=== PATIENT | female | born 1985 | race Caucasian/White ===

== ENCOUNTER → 2016-07-28 | Outpatient (CLI) | payer OTHER ==
[~2016-07-28] MED LIST: PRENTAB26 PO
[2016-07-28 18:39] LABS: URINE APPEARANCE CLEAR (CLEAR); URINE BILIRUBIN NEG (NEG); URINE COLOR YELLOW; URINE NITRITE NEG (NEG); URINE SPECIFIC GRAVITY 1.015 (1.000-1.030); UROBILINOGEN NEG (NEG)
[2016-07-28 18:40] LABS: MANUAL MICROSCOPIC REQUIRED? NO; REVIEW REQ? NO
== END | disposition home or self-care (01) ==
LOC: C.LABSPEC 17:42
PROVIDERS: ATTEND Obstetrics & Gynecology
DX: Z34.90 Encounter for supervision of normal pregnancy, unspecified, unspecified trimester (principal)

== ENCOUNTER → 2016-08-04 | Outpatient (CLI) | payer OTHER ==
[2016-08-04 10:22] LABS: BASO % 0.3 %; BASO ABS # 0.03 K/uL (0-0.2); COMPLETE YES; EOS % 2.3 %; HEMATOCRIT 39.9 % (37-47); IG% 0.2 %; LYMPH % 22.8 %; LYMPH ABS # 2.15 K/uL (1.2-3.4); MEAN CELL VOLUME 77.2 fL (80-100); MEAN CORPUSCULAR HEMOGLOBIN 25.5 pg (25-34); MEAN CORPUSCULAR HGB CONC 33.1 g/dl (32-36); MEAN PLATELET VOLUME 10.5 fL (7.4-10.4); MONO % 4.7 %; NEUT % 69.7 %; PLATELET COUNT 321 K/uL (130-400); RED BLOOD COUNT 5.17 M/uL (4.2-5.4); WHITE BLOOD COUNT 9.45 K/uL (4.8-10.8)
[2016-08-06 15:39] LABS: CHLAMYDIA TRACH RNA*** NOT DETECTED (NOT DETECTED); GC (NEIS GONORRHOEAE)RNA** NOT DETECTED (NOT DETECTED)
== END | disposition home or self-care (01) ==
LOC: C.LAB1850 09:00
PROVIDERS: ATTEND Obstetrics & Gynecology
DX: Z34.90 Encounter for supervision of normal pregnancy, unspecified, unspecified trimester (principal)

== ENCOUNTER → 2016-08-04 | Outpatient (CLI) | payer OTHER | END | disposition home or self-care (01) | LOC: C.PAPS 13:31 | PROVIDERS: ATTEND Obstetrics & Gynecology | DX: Z12.4 Encounter for screening for malignant neoplasm of cervix (principal) ==

== ENCOUNTER → 2016-08-28 | Outpatient (CLI) | payer OTHER | END | disposition home or self-care (01) | LOC: C.LAB1850 07:16 | PROVIDERS: ATTEND Obstetrics & Gynecology | DX: O45.90 Premature separation of placenta, unspecified, unspecified trimester (principal); O20.9 Hemorrhage in early pregnancy, unspecified ==

== ENCOUNTER → 2016-10-04 | Outpatient (CLI) | payer BC ==
[2016-10-04 13:56] LABS: GTGD 50 Grams
== END | disposition home or self-care (01) ==
LOC: C.LAB1850 09:18
PROVIDERS: ATTEND Obstetrics & Gynecology
DX: Z34.90 Encounter for supervision of normal pregnancy, unspecified, unspecified trimester (principal)

== ENCOUNTER → 2016-11-29 | Outpatient (CLI) | payer BC | END | disposition home or self-care (01) | LOC: C.LAB1850 17:02 | PROVIDERS: ATTEND Obstetrics & Gynecology | DX: O46.92 Antepartum hemorrhage, unspecified, second trimester (principal); Z3A.00 Weeks of gestation of pregnancy not specified ==

== ENCOUNTER → 2016-12-28 | Outpatient (CLI) | payer BC ==
[2016-12-28 16:28] LABS: URINE APPEARANCE CLEAR (CLEAR); URINE BILIRUBIN NEG (NEG); URINE COLOR YELLOW; URINE NITRITE NEG (NEG); URINE PH 7.5 (4.5-7.5); URINE SPECIFIC GRAVITY 1.006 (1.000-1.030); UROBILINOGEN NEG (NEG)
[2016-12-28 16:33] LABS: MANUAL MICROSCOPIC REQUIRED? NO; REVIEW REQ? NO
[2016-12-28 16:44] LABS: HEMATOCRIT 35.1 % (37-47)
[2016-12-28 17:13] LABS: GTGD 50 Grams
== END | disposition home or self-care (01) ==
LOC: C.LAB1850 15:08
PROVIDERS: ATTEND Obstetrics & Gynecology
DX: Z34.02 Encounter for supervision of normal first pregnancy, second trimester (principal)

== ENCOUNTER → 2017-02-20 | Outpatient (CLI) | payer BC | END | disposition home or self-care (01) | LOC: C.LABSPEC 16:18 | PROVIDERS: ATTEND Obstetrics & Gynecology | DX: Z34.03 Encounter for supervision of normal first pregnancy, third trimester (principal) ==

== ENCOUNTER 2017-02-28 22:57 | Inpatient (IN) | payer BC ==
[~2017-02-28] VITALS: Ht 170.2 cm; Wt 100.6 kg
[2017-03-01 00:23] VITALS: Ht 170.2 cm; Wt 100.6 kg
[2017-03-01] MEDS ORDERED: PRENTAB26 PO (00:23)
[2017-03-01] MEDS ORDERED: EpHEDrine SULFATE INJ 50 MG/ML AMP ONE (01:03)
[2017-03-01] MEDS ORDERED: FENTANYL CITRATE INJ 50 MCG/1 ML 2 ML VIAL ONE (01:03)
[2017-03-01] MEDS ORDERED: BUPIVACAINE 0.25% 30 ML VIAL ONE (01:03)
[2017-03-01] MEDS ORDERED: FENTANYL 2MCG/ML ROPIV 1.25MG/ML 100ML BAG EPI ONE (01:03)
[2017-03-01] MEDS ORDERED: LACTATED RINGER'S 1000ML 1,000 ML IV PRN (01:05)
[2017-03-01] MEDS ORDERED: LACTATED RINGER'S 1000ML 1,000 ML IV SCH (01:05)
[2017-03-01] MEDS ORDERED: OXYTOCIN 30 UNITS/500ML NSS IV ONE (01:24)
[2017-03-01 01:27] LABS: HEMATOCRIT 37.5 % (37-47); MEAN CELL VOLUME 77.3 fL (80-100); MEAN CORPUSCULAR HEMOGLOBIN 26.4 pg (25-34); MEAN PLATELET VOLUME 11.3 fL (7.4-10.4); PLATELET COUNT 233 K/uL (130-400); RED BLOOD COUNT 4.85 M/uL (4.2-5.4); WHITE BLOOD COUNT 19.64 K/uL (4.8-10.8)
[2017-03-01 01:41] LABS: MEAN CORPUSCULAR HGB CONC 34.1 g/dl (32-36)
[2017-03-01] MEDS ORDERED: OXYTOCIN INJ 20 UNITS in LACTATED RINGER'S 1000ML 1,000 ML IV SCH (01:59)
--- NOTE | 2017-03-01 01:59 | Vaginal Delivery Summary ---
Vaginal Delivery Summary 31-year-old 1 para 0 at 37-6/7 weeks who presented to labor and delivery with questionable rupture of membranes. She had been 4 cm earlier today in the office. She did not report painful contractions. After 1 hour of walking she had intense contractions and rapidly dilated to 7 cm and then to complete. She pushed to deliver a viable female Apgars 8 and 9 via over second-degree perineal laceration. Her pushing was somewhat uncontrolled and therefore the shoulders and body rapidly followed. A body cord was noted. The was vigorous and crying at . The mouth and nose were bulb suctioned. The cord was clamped at 30 seconds of life. The infant was placed on the maternal abdomen. The cord was doubly clamped and then cut. The placenta was delivered spontaneously and intact, 3 vessel cord. Hemostasis achieved with dilute Pitocin and uterine massage. Cervix and sulci intact. Second-degree perineal laceration repaired in usual fashion with 3-0 Vicryl after 1% local lidocaine. Bleeding noted of the left labia/periclitoral region and therefore also injected with 1% local lidocaine and then stitched with 2 interrupted sutures of 4-0 Vicryl for excellent hemostasis. EBL 300 cc's. Mother and baby stable in recovery.
[2017-03-01] MEDS ORDERED: ACETAMINOPHEN 325 MG TAB PO PRN (02:00)
[2017-03-01] MEDS ORDERED: OXYCODONE/ACETAMINOPHEN 5-325 TAB PO PRN (02:00)
[2017-03-01] MEDS ORDERED: BENZOCAINE 20% AER SPR 82.5 GM CAN EXT PRN (02:00)
[2017-03-01] MEDS ORDERED: LANOLIN OINT EXT PRN ×2 (02:00)
[2017-03-01] MEDS ORDERED: HYDROCORTISONE ACETATE 25 MG SUPP PR PRN (02:00)
[2017-03-01] MEDS ORDERED: OXYTOCIN 30 UNITS/500ML NSS IV PRN (02:00)
[2017-03-01] MEDS ORDERED: SUPERCREAM 0.870 % 15GM JAR EXT PRN (02:00)
[2017-03-01] MEDS ORDERED: IBUPROFEN 600 MG TAB ONE (02:12)
[2017-03-01 05:40] VITALS: BP 130/79; PULSE 71; TEMP 37
[2017-03-01] MEDS: IBUPROFEN 600 MG TAB PO PRN ×4 (06:48→20:13)
[2017-03-01] MEDS: DOCUSATE SODIUM 100 MG CAP PO SCH ×2 (08:29→20:12)
[2017-03-01 08:45] VITALS: BP 132/83; PULSE 84; TEMP 36.7; O2SAT 100
[2017-03-01 12:10] VITALS: BP 122/85; PULSE 87; TEMP 36.6; O2SAT 97
[2017-03-01 15:40] VITALS: BP 142/82; PULSE 82; TEMP 36.7; O2SAT 97
[2017-03-01 19:55] VITALS: BP 132/77; PULSE 77; TEMP 36.8
[2017-03-02 00:50] VITALS: BP 105/70; PULSE 71; TEMP 36.5
[2017-03-02 04:05] VITALS: BP 109/70; PULSE 79; TEMP 36.8
[2017-03-02] MEDS: IBUPROFEN 600 MG TAB PO PRN ×2 (06:12→17:38)
--- NOTE | 2017-03-02 07:23 | Progress Note ---
Subjective Mar 02, 2017. Subjective conversation w/ patient, physical exam, chart review, lab review Ambulation: ambulating normally Voiding: no voiding problems Diet Tolerance: Regular Diet Lochia: Moderate Feeding Type: Breast Feeding Pain: CONTROLLED Review of Systems Respiratory: No shortness of breath Cardiac: No chest pain Abdomen: No nausea, No vomiting Female : No dysuria Objective Vital Signs Date Time Temp Pulse Resp B/P (MAP) Pulse Ox O2 Delivery O2 Flow Rate FiO2 03/02/17 04:05 36.8 79 18 109/70 (83) Room Air 03/02/17 00:50 Room Air 03/02/17 00:50 36.5 71 18 105/70 (82) Room Air 03/01/17 19:55 36.8 77 18 132/77 (95) Room Air 03/01/17 15:40 97 Room Air 03/01/17 15:40 36.7 82 20 142/82 (102) 97 Room Air 03/01/17 12:10 36.6 87 16 122/85 (97) 97 Room Air 03/01/17 08:45 36.7 84 18 132/83 (99) 100 Room Air 03/01/17 08:45 100 Room Air Physical Exam General Appearance: WELL-APPEARING, WD/WN, NO APPARENT DISTRESS Respiratory/Chest: lungs clear, normal breath sounds, no respiratory distress Cardiovascular: regular rate, rhythm, no gallop Abdomen: normal bowel sounds, soft Fundus: Firm, Tender (APPROPRIATLEY TENDER), Relation to Umbilicus (1 BELOW U) Extremities: non-tender, normal inspection Assessment and Plan Post- Day#: 1 Continue Routine Care: 31 YOF now 1, 37 6/7 12/7 at 0100 A-/GBS -/RI Hgb 12.8, STABLE. Pt doing well clinically, desires to go home today. Counselled on dc instructions Encourage ambulation, , control pain with motrin/tylenol. LAYNE DEAN FMR PGY 1 Resident Physician Supervision Note: I interviewed and examined the patient. Discussed with Dr. Dean and agree with findings and plan as documented in the note. Any exceptions or clarifications are listed here: Doing well. Plan d/c. Instructions given. Documented By: Elke Jean Baptiste Resident Tracking Resident Involvement: Resident Care Provided Care Provided: OB Delivery
--- NOTE | 2017-03-02 07:25 | Discharge Instructions ---
Discharge Instructions Date of Service Mar 02, 2017. Admission Reason for Admission: LABOR Discharge Discharge Diagnosis / Problem: SPONT VAGINAL DELIVERY Discharge Goals Goal(s): Routine recovery after delivery Medications Continue Dispensed Medications: supercream, dermaplast, tucks, lansinoh Activity Recommendations Activity Limitations: per Instructions/Follow-up section . Instructions / Follow-Up Instructions / Follow-Up ACTIVITY RECOMMENDATIONS: * Gradual return to full activity over the next 2-3 weeks. * No lifting - nothing heavier than baby over the next 2-3 weeks. * Do not engage in vigorous exercise, sexual activity or sports until cleared by your physician. * Do not drive or operate any motorized equipment until cleared by your physician. * You may shower/bathe daily. MEDICATIONS: For discomfort or pain, you may use Acetaminophen (Tylenol), Ibuprofen (Advil), or Naproxen (Aleve) following the package directions. For constipation you may use Colace following the package directions. BREAST CARE: If you are not breast feeding: * Wear a supportive bra 24 hours a day for one to two weeks. * Avoid stimulating your breasts and nipples as much as possible during the first few weeks after delivery. * When taking a shower, have the warm water hit your back, not breasts. * When your breasts feel full, apply ice packs. Usually three to four times a day helps ease the discomfort. * Take a mild pain medication (Tylenol / Motrin) when you are uncomfortable. If breast feeding: * Use breast milk to lubricate nipples. Lansinoh cream may be used for sore nipples. You do not need to remove cream prior to breast feeding. If using a different brand of cream, check the label for directions regarding removal of cream prior to nursing. * Wear a supportive bra. * If having problems with breasts or breast feeding, call a residential solar consultant or your health care provider. EPISIOTOMY CARE: After delivery, if you have an episiotomy (stitches), the following steps will ease discomfort and aid healing. * For the first 24 hours after delivery, place ice packs next to your episiotomy to help reduce swelling. * After the first 24 hour-period, sitz baths, either portable or in the tub, are suggested. A shower with a shower arm sprayed over the episiotomy may be comforting. * Monica care should be done after each voiding and bowel movement. Squirt warm water from a plastic bottle over the perineum (region of the body between the anus and urinary opening) and pat dry. * Use Dermoplast to ease discomfort. Shake container. Fischer directly over the episiotomy. Place a Tucks on a clean sanitary pad next to your episiotomy. SPECIAL CARE INSTRUCTIONS: When you are discharged from the hospital, it is important for you to follow the instructions listed below: * During the first week at home, you should be able to care for yourself and your baby. In addition, the usual light household activities are encouraged. * Limit your activities to the way you feel. Do not try to clean the house or move furniture. Be sensible. * If you actively engage in sports and have done so up until the time of your delivery, you may resume these activities as soon as you feel able. This may take up to one month or even longer. Use good judgment. * Continue to take your vitamins for at least six weeks after the of your baby. * Your diet need not be limited unless you were on a special diet before your delivery. Breast-feeding mothers need around 2500 calories per day and at least 64-80 ounces of fluid per day (8 to 10 glasses). * You should eat foods from the four major food groups. Crash diets or fad diets are to be avoided. Eating lean meats, fresh fruits and vegetables, low-fat dairy products, high fiber foods and a regular exercise program, will help you get back to your pre- weight without putting your health at risk. * Constipation is sometimes a problem after delivery. Take a mild laxative as needed. If breast feeding, Milk of Magnesia is acceptable to use. You may use a suppository or Fleets enema if no episiotomy. * A daily shower or tub bath is suggested. Be sure to thoroughly and gently dry the perineum. * A bloody vaginal discharge will usually continue until around four weeks post . A small amount of bleeding may continue for as long as six weeks. Vaginal discharge changes from the bright red bleeding after delivery to pink then brownish and finally yellowish-pink before becoming white and disappearing. * Bleeding may increase with activity. Your first period may come in 4-8 weeks. If you are breast feeding, your period may be delayed even longer. * [place] (sex) can begin whenever both you and your partner feel comfortable and do not have any form of genital infection. It is recommended that you wait at least six weeks for internal and external healing to occur. If you have questions, please talk to your health care practitioner. A condom should be used to prevent infection and . * Foreplay, gentle intercourse and lubrication is very important the first several times to prevent pain. A water-based lubricant such as K-Y jelly or Astroglide may be used. * If you have RH negative blood and your baby is RH positive, you will receive RHOGAM by injection prior to discharge. The nurse will give you a card to keep with you that has the date and place that you received RHOGAM after delivery. * During your care, you had a Rubella screen done to check for the presence of rubella antibodies in your blood. If your test was negative, you will receive a Rubella vaccine prior to discharge. This vaccine may cause a fever, soreness at the injection site and flu-like symptoms. If these symptoms persist, notify your health care practitioner. is not advised for one month after a Rubella vaccine. * Verbalizes understanding of car seat law as reviewed with patient nursing. * Car Seat hand-out given and reviewed with patient by nursing. * Shaken baby information reviewed with patient by nursing. Call you doctor if: * Heavy bleeding (saturating several pads an hour) or passing clots the size of your fist. * A fever >101 degrees F (38.3 degrees C) on two occasions four hours apart and /or chills. * Unusual pain in the pelvic or vaginal areas. * "Baby Blues" lasting longer than two weeks. If you have any questions or concerns, call your health care practitioner at . FOLLOW UP VISIT: * Please call the office at to schedule a 6 week examination. It is important you keep this appointment. It is important for you to make arrangements for either yearly or twice yearly check-ups thereafter. Current Hospital Diet Patient's current hospital diet: Regular OB Diet Discharge Diet Recommended Diet: Regular OB Diet Pending Studies Studies pending at discharge: no Medical Emergencies . Who to Call and When: Medical Emergencies: If at any time you feel your situation is an emergency, please call 911 immediately. . Non-Emergent Contact Non-Emergency issues call your: Primary Care Provider . . "Provider Documentation" section prepared by Dianne Dean. . VTE Core Measure Inpt VTE Proph given/why not?: Treatment not indicated
[2017-03-02 08:00] VITALS: BP 124/77; PULSE 65; TEMP 36.6
[2017-03-02] MEDS: DOCUSATE SODIUM 100 MG CAP PO SCH (08:24)
[2017-03-02] MEDS ORDERED: DIPHTHERIA/TETANUS/PERTUSSIS 0.5 ML SYR/VIAL IM. ONE (09:00)
[2017-03-02 15:50] VITALS: BP 118/77; PULSE 84; TEMP 36.5
[2017-03-02 19:04] VITALS: BP_DIAS 77; PULSE 84; TEMP 36.5
== END 2017-03-02 20:00 | disposition home or self-care (01) | DRG 775 ==
LOC: C.OPB 22:57 → C.LD 22:57 → UNDOADMIN 03-01 00:21 → C.OPB 03-01 00:21 → C.LD 03-01 00:21 → C.OBG 03-01 04:33
PROVIDERS: ADMIT Obstetrics & Gynecology; ATTEND Obstetrics & Gynecology
PROC: 10E0XZZ Delivery of Products of Conception, External Approach (ICD-10-PCS; principal; 2017-03-01)
PROC: 0KQM0ZZ Repair Perineum Muscle, Open Approach (ICD-10-PCS; principal; 2017-03-01)
DX: O70.1 Second degree perineal laceration during delivery (principal); O69.82X0 Labor and delivery complicated by other cord entanglement, without compression, not applicable or unspecified; Z3A.37 37 weeks gestation of pregnancy; Z37.0 Single live birth